=== PATIENT | female | born 1950 | race African-American/Black ===

== ENCOUNTER 2020-06-01 16:55 | Emergency (ER) | payer OTHER ==
[~2020-06-01] VITALS: Ht 177.8 cm; Wt 104.5 kg
[~2020-06-01 16:55] MED LIST: AMLO2.5T96 PO; BENA10TA PO; FURO40 PO; GLIP10 PO; HYDR-1475 PO; METF-911 PO; VICOT PO; [UNRECOGNIZED DRUG - CODE]
[2020-06-01 18:51] LABS: BASOPHILS % (AUTO) 0.5 % (0.0-2.0); EOSINOPHILS % (AUTO) 0.2 % (1.0-6.0); HEMATOCRIT 40.3 % (36-46); HEMOGLOBIN 12.9 g/dL (12.0-16.0); LYMPHOCYTES # (AUTO) 1.4 K/uL (1.0-4.8); LYMPHOCYTES % (AUTO) 45.7 % (22.0-44.0); MEAN CORPUSCULAR HEMOGLOBIN 26.3 pg (26.0-34.0); MEAN CORPUSCULAR HGB CONC 32.1 G/dL (31.0-37.0); MEAN CORPUSCULAR VOLUME 82 fL (80-100); MONOCYTES # (AUTO) 0.6 K/uL (0.1-1.0); NEUTROPHILS # (AUTO) 1.1 K/uL (1.8-7.7); NEUTROPHILS % (AUTO) 35.6 % (40.0-70.0); PLATELET COUNT (AUTO) 141 K/uL (150-450); RED BLOOD CELL COUNT(AUTO) 4.93 MIL/uL (4.00-5.20); RED CELL DISTRIBUTION WIDTH 14.6 % (11.5-14.5)
[2020-06-01 18:59] LABS: INR 0.9 (0.9-1.1)
[2020-06-01 19:00] LABS: ALBUMIN 3.3 g/dL (3.4-5.0); BILIRUBIN,TOTAL 0.4 mg/dL (0.1-1.0); CALCIUM, TOTAL 9.1 mg/dL (8.8-10.5); CREATININE 1.74 mg/dL (0.60-1.30); POTASSIUM 3.3 mmol/L (3.5-5.1); TOTAL PROTEIN, SERUM 7.4 g/dL (6.4-8.2)
[2020-06-01] MEDS ORDERED: FentaNYL CITRATE-PF 100 MCG/2 ML VIAL IVP ONE (19:30)
[2020-06-01] MEDS ORDERED: SODIUM CHLORIDE 0.9% 1,000 ML IV ONE (19:30)
[2020-06-01] MEDS ORDERED: ONDANSETRON HCL 4 MG/2 ML VIAL IVP ONE (19:30)
[2020-06-01 20:20] LABS: APPEARANCE,URINE CLEAR (CLEAR); GLUCOSE, URINE (UA) >=1000 mg/dL (NEGATIVE); KETONES,URINE TRACE mg/dL (NEGATIVE); LEUKOCYTE ESTERASE ,URINE NEGATIVE (NEGATIVE); NITRATE,URINE NEGATIVE (NEGATIVE); OCCULT BLOOD,URINE TRACE (NEGATIVE); PROTEIN,URINE SEE CONFIRM (NEGATIVE)
[2020-06-01 20:25] LABS: BILIRUBIN,URINE PRELIM. POSITIVE (NEGATIVE)
[2020-06-01 20:52] LABS: C-REACTIVE PROTEIN QUANT 0.24 mg/dL (0.00-0.30)
[2020-06-01 20:57] LABS: RBC,URINE 0-2 /HPF (0-2); SULFOSALICYLIC ACID,URINE 4+ (Negative)
[2020-06-01 20:58] LABS: BACTERIA,URINE Few /HPF (None Seen); SQUAMOUS EPITHELIAL CELL,UR Moderate /LPF (None Seen); WBC,URINE 0-2 /HPF (0-5)
[2020-06-01 21:47] LABS: GLUCOSE,POINT OF CARE 292 MG/DL (70-110)
[2020-06-01 22:55] VITALS: BP 135/81
== END 2020-06-02 00:28 | disposition home or self-care (01) ==
LOC: EMS 16:55
DX: U07.1 COVID-19 (principal); J12.89 Other viral pneumonia; R10.84 Generalized abdominal pain; E11.65 Type 2 diabetes mellitus with hyperglycemia; F32.9 Major depressive disorder, single episode, unspecified; F17.210 Nicotine dependence, cigarettes, uncomplicated; Z88.6 Allergy status to analgesic agent; Z88.0 Allergy status to penicillin; Z79.84 Long term (current) use of oral hypoglycemic drugs; Z79.899 Other long term (current) drug therapy
CPT/HCPCS: 36415; 71045; 74176; 80053; 81001; 82550; 82728; 82962; 83690; 83880; 84484; 85025; 85379; 85610; 85730; 86140; 86850; 86900; 86901; 87426; 93005; 96361; 96374; 96375; 99285; J2405; J3010; J7030; U0003

== ENCOUNTER 2020-09-01 06:25 | Day surgery (SDC) | payer OTHER ==
[~2020-09-01] VITALS: Ht 180.3 cm; Wt 93.0 kg
[~2020-09-01 06:25] MED LIST changes: +CYCLOPENTOLATE HCL 1% 2 ML OPHTHALMIC SOLUTION ONE; +MOXIFLOXACIN HCL 0.5% 3 ML OPHTHALMIC SOLUTION ONE; +PHENYLEPHRINE HCL 2.5% 2 ML OPHTHALMIC SOLUTION ONE; +RINGERS SOLUTION,LACTATED 500 ML IV ONE; +TETRACAINE HCL/PF 0.5% 4 ML OPHTHALMIC SOLUTION ONE; +TROPICAMIDE 1% 2 ML OPHTHALMIC SOLUTION ONE
[2020-09-01 06:49] LABS: COVID AG,FIA SOURCE NASOPHARYNGEAL
[2020-09-01] MEDS: TROPICAMIDE 1% 2 ML OPHTHALMIC SOLUTION OD SCH ×2 (06:53→07:28)
[2020-09-01] MEDS: PHENYLEPHRINE HCL 2.5% 2 ML OPHTHALMIC SOLUTION OD SCH ×3 (06:54→07:27)
[2020-09-01] MEDS: MOXIFLOXACIN HCL 0.5% 3 ML OPHTHALMIC SOLUTION OD SCH ×3 (06:54→07:27)
[2020-09-01] MEDS: CYCLOPENTOLATE HCL 1% 2 ML OPHTHALMIC SOLUTION OD SCH ×3 (06:54→07:27)
[2020-09-01] MEDS ORDERED: KETOROLAC TROMETHAMINE 0.5% 5 ML OPHTHALMIC SOLUTION OD SCH (07:00)
[2020-09-01] MEDS ORDERED: TETRACAINE HCL/PF 0.5% 4 ML OPHTHALMIC SOLUTION OD ONE (07:00)
[2020-09-01] MEDS ORDERED: INSULIN REGULAR, HUMAN 100 UNITS/ML ONE (07:23)
[2020-09-01] MEDS ORDERED: INSULIN REGULAR, HUMAN 100 UNITS/ML IVP ONE (07:30)
[2020-09-01 08:12] LABS: GLUCOMETER DEV NAME(LOC) SDS.; GLUCOSE,POINT OF CARE 450 MG/DL (70-110)
[2020-09-01 10:16] LABS: GLUCOMETER DEV NAME(LOC) SDS.; GLUCOSE,POINT OF CARE 287 MG/DL (70-110)
[2020-09-01] MEDS ORDERED: MIDAZOLAM HCL 2 MG/2 ML VIAL IVP ONE ×2 (12:00)
== END 2020-09-01 10:00 | disposition home or self-care (01) ==
LOC: SURGERY 06:25
PROVIDERS: ATTEND Ophthalmology
DX: E11.36 Type 2 diabetes mellitus with diabetic cataract (principal); H25.11 Age-related nuclear cataract, right eye; E11.39 Type 2 diabetes mellitus with other diabetic ophthalmic complication; H42 Glaucoma in diseases classified elsewhere; I25.2 Old myocardial infarction; Z98.890 Other specified postprocedural states; Z88.0 Allergy status to penicillin; Z88.8 Allergy status to other drugs, medicaments and biological substances; Z79.4 Long term (current) use of insulin
CPT/HCPCS: 66984; 66174; 82962; 87426; 93005; C9803; J1815; J2250; J7120; V2632

== ENCOUNTER 2020-10-17 05:55 | Day surgery (SDC) | payer OTHER ==
[~2020-10-17] VITALS: Ht 175.3 cm; Wt 92.3 kg
[~2020-10-17 05:55] MED LIST changes: +KETOROLAC TROMETHAMINE 0.5% 5 ML OPHTHALMIC SOLUTION ONE
[2020-10-17] MEDS ORDERED: RINGERS SOLUTION,LACTATED 500 ML IV ONE (06:00)
[2020-10-17 06:22] LABS: COVID AG,FIA SOURCE NASOPHARYNGEAL
[2020-10-17] MEDS ORDERED: TETRACAINE HCL/PF 0.5% 4 ML OPHTHALMIC SOLUTION OS ONE (07:00)
[2020-10-17] MEDS ORDERED: KETOROLAC TROMETHAMINE 0.5% 5 ML OPHTHALMIC SOLUTION OS SCH (07:00)
[2020-10-17] MEDS: MOXIFLOXACIN HCL 0.5% 3 ML OPHTHALMIC SOLUTION OS SCH ×3 (07:28→07:39)
[2020-10-17] MEDS: TROPICAMIDE 1% 2 ML OPHTHALMIC SOLUTION OS SCH ×3 (07:28→07:39)
[2020-10-17] MEDS: PHENYLEPHRINE HCL 2.5% 2 ML OPHTHALMIC SOLUTION OS SCH ×3 (07:28→07:39)
[2020-10-17] MEDS: CYCLOPENTOLATE HCL 1% 2 ML OPHTHALMIC SOLUTION OS SCH ×3 (07:28→07:39)
[2020-10-17] MEDS ORDERED: MIDAZOLAM HCL 2 MG/2 ML VIAL IVP ONE (12:00)
[2020-10-17] MEDS ORDERED: FentaNYL CITRATE PF 100 MCG/2 ML VIAL IVP ONE (12:00)
== END 2020-10-17 09:10 | disposition home or self-care (01) ==
LOC: SURGERY 05:55
PROVIDERS: ATTEND Ophthalmology
DX: E11.36 Type 2 diabetes mellitus with diabetic cataract (principal); H25.12 Age-related nuclear cataract, left eye; E11.39 Type 2 diabetes mellitus with other diabetic ophthalmic complication; H42 Glaucoma in diseases classified elsewhere; Z88.8 Allergy status to other drugs, medicaments and biological substances; Z88.0 Allergy status to penicillin; I25.2 Old myocardial infarction; Z98.890 Other specified postprocedural states; Z98.41 Cataract extraction status, right eye
CPT/HCPCS: 66984; 66174; 87426; C9803; J2250; J3010; J7120; V2632

== ENCOUNTER 2024-03-19 11:24 | Emergency (ER) | payer OTHER ==
[~2024-03-19] VITALS: Ht 177.8 cm; Wt 113.6 kg
[~2024-03-19 11:24] MED LIST changes: -CYCLOPENTOLATE HCL 1% 2 ML OPHTHALMIC SOLUTION ONE; -GLIP10 PO; +GLIP10TA10 PO; -HYDR-1475 PO; +HYDR25TA2 PO; -KETOROLAC TROMETHAMINE 0.5% 5 ML OPHTHALMIC SOLUTION ONE; +METF-81 PO; -METF-911 PO; -MOXIFLOXACIN HCL 0.5% 3 ML OPHTHALMIC SOLUTION ONE; -PHENYLEPHRINE HCL 2.5% 2 ML OPHTHALMIC SOLUTION ONE; -RINGERS SOLUTION,LACTATED 500 ML IV ONE; -TETRACAINE HCL/PF 0.5% 4 ML OPHTHALMIC SOLUTION ONE; -TROPICAMIDE 1% 2 ML OPHTHALMIC SOLUTION ONE
[2024-03-19 11:42] VITALS: TEMP 98.4
[2024-03-19 13:40] LABS: BASOPHILS % (AUTO) 0.6 % (0.0-2.0); EOSINOPHILS % (AUTO) 0.7 % (1.0-6.0); HEMATOCRIT 41.5 % (36-46); HEMOGLOBIN 13.4 g/dL (12.0-16.0); LYMPHOCYTES # (AUTO) 1.7 K/uL (1.0-4.8); LYMPHOCYTES % (AUTO) 31.3 % (22.0-44.0); MEAN CORPUSCULAR HEMOGLOBIN 27.1 pg (26.0-34.0); MEAN CORPUSCULAR HGB CONC 32.3 G/dL (31.0-37.0); MEAN CORPUSCULAR VOLUME 84 fL (80-100); MONOCYTES # (AUTO) 0.4 K/uL (0.1-1.0); NEUTROPHILS # (AUTO) 3.2 K/uL (1.8-7.7); NEUTROPHILS % (AUTO) 59.4 % (40.0-70.0); PLATELET COUNT (AUTO) 207 K/uL (150-450); RED BLOOD CELL COUNT(AUTO) 4.96 MIL/uL (4.00-5.20); RED CELL DISTRIBUTION WIDTH 14.1 % (11.5-14.5); WHITE BLOOD COUNT (AUTO) 5.4 K/uL (4.5-11.0)
[2024-03-19] MEDS ORDERED: METO-408 PO (13:43)
[2024-03-19] MEDS ORDERED: HYDR-4069 PO (13:43)
[2024-03-19] MEDS ORDERED: HYDR25TA84 PO (13:43)
[2024-03-19] MEDS ORDERED: AMLO10TA55 PO (13:43)
[2024-03-19] MEDS ORDERED: LOVA20TA3 PO (13:43)
[2024-03-19] MEDS ORDERED: INSU100I93 SQ (13:43)
[2024-03-19] MEDS ORDERED: ERGO500093 PO (13:43)
[2024-03-19] MEDS ORDERED: FLUT16H NASAL (13:43)
[2024-03-19] MEDS ORDERED: INSU100V42 SQ (13:43)
[2024-03-19] MEDS ORDERED: LATA2.5D14 OU (13:43)
[2024-03-19] MEDS ORDERED: EMPA10TA3 PO (13:43)
[2024-03-19] MEDS ORDERED: FURO20TA4 PO (13:43)
[2024-03-19] MEDS ORDERED: POTA-364 PO (13:43)
[2024-03-19 13:49] LABS: CALCIUM, TOTAL 9.1 mg/dL (8.8-10.5); CREATININE 1.79 mg/dL (0.60-1.30); POTASSIUM 3.5 mmol/L (3.5-5.1)
[2024-03-19 13:57] LABS: TROPONIN I-HIGH SENSITIVITY 27 ng/L (<51)
[2024-03-19] MEDS: HYDROCODONE/ACETAMINOPHEN 5-325 MG TABLET PO ONE (13:59)
[2024-03-19 14:13] LABS: ALBUMIN 2.9 g/dL (3.4-5.0); BILIRUBIN,TOTAL 0.4 mg/dL (0.1-1.0); TOTAL PROTEIN, SERUM 7.3 g/dL (6.4-8.2)
[2024-03-19 14:49] VITALS: BP 162/89; PULSE 82; RESP 16
[2024-03-19] MEDS: ValACYclovir HCL 500 MG TABLET PO ONE (15:22)
[2024-03-20] MEDS ORDERED: VALA500T42 PO (11:12)
== END 2024-03-19 15:26 | disposition home or self-care (01) ==
LOC: EMS 11:52
DX: B02.9 Zoster without complications (principal); E11.9 Type 2 diabetes mellitus without complications; I10 Essential (primary) hypertension; F17.210 Nicotine dependence, cigarettes, uncomplicated; Z88.0 Allergy status to penicillin; Z88.6 Allergy status to analgesic agent; Z98.890 Other specified postprocedural states
CPT/HCPCS: 70450; 71045; 80053; 82550; 83880; 84484; 85025; 93005; 99285; 36415-L1; 36415-TC